=== PATIENT | female | born 1995 | race Caucasian/White ===

== ENCOUNTER 2019-02-07 22:40 | Emergency (ER) | payer OTHER ==
[~2019-02-07] VITALS: Ht 162.6 cm; Wt 56.8 kg
[2019-02-07 22:54] VITALS: BP 125/79; TEMP 98.9
[2019-02-08 00:42] VITALS: PULSE 94
== END 2019-02-08 00:45 | disposition home or self-care (01) ==
LOC: COL.ER 22:40
DX: S91.312A Laceration without foreign body, left foot, initial encounter (principal); F17.210 Nicotine dependence, cigarettes, uncomplicated; Z23 Encounter for immunization; W25.XXXA Contact with sharp glass, initial encounter; Y92.89 Other specified places as the place of occurrence of the external cause; Y99.0 Civilian activity done for income or pay

== ENCOUNTER 2023-08-04 09:12 | Emergency (ER) | payer BC ==
[~2023-08-04] VITALS: Ht 162.6 cm; Wt 59.1 kg
[2023-08-04 09:19] VITALS: BP 149/107; TEMP 98.4
[2023-08-04 11:13] VITALS: PULSE 80
== END 2023-08-04 11:13 | disposition home or self-care (01) ==
LOC: COL.ER 09:12
DX: M25.562 Pain in left knee (principal); Z87.828 Personal history of other (healed) physical injury and trauma; W00.0XXA Fall on same level due to ice and snow, initial encounter

== ENCOUNTER 2024-04-21 06:41 | Emergency (ER) | payer BC ==
[~2024-04-21] VITALS: Ht 162.6 cm; Wt 59.1 kg
[2024-04-21 06:54] VITALS: BP 143/99; TEMP 98
[2024-04-21] MEDS ORDERED: NORCO 325 MG-51 TAB PO (07:56)
[2024-04-21] MEDS ORDERED: Acetaminophen 500 MG TAB PO ONE (08:30)
[2024-04-21 08:40] VITALS: PULSE 80
== END 2024-04-21 08:40 | disposition home or self-care (01) ==
LOC: COL.ER 06:41
DX: S86.912A Strain of unspecified muscle(s) and tendon(s) at lower leg level, left leg, initial encounter (principal); X58.XXXA Exposure to other specified factors, initial encounter
CPT/HCPCS: 31289; L1830; L1846